=== PATIENT | male | born 2000 | race Caucasian/White ===

== ENCOUNTER 2019-11-23 23:02 | Emergency (ER) | payer OTHER, SELFPAY ==
[2019-11-23 23:05] VITALS: BP 135/78; PULSE 91; RESP 18; TEMP 36.3; O2SAT 98
--- NOTE | 2019-11-24 01:18 | ED.WOUNDLAC ---
HPI - Wound/Laceration General Chief Complaint: Wound/Laceration Stated Complaint: lac right leg Time Seen by Provider: 11/24/19 01:15 Source: patient Mode of arrival: ambulatory Limitations: no limitations History of Present Illness HPI narrative: This patient is a 19 year old male who presents for evaluation right knee laceration. Patient states he hit his right knee with a door and he suffered an laceration. He states prior to arrival he was unable to control bleeding so he came to ER. His bleeding has stopped. He has minimal pain currently. He denies any difficulty ambulation. His last tetanus was 2 years ago. Related Data Home Medications Medication Instructions Recorded Confirmed No Home Medications 11/23/19 11/23/19 Allergies Allergy/AdvReac Type Severity Reaction Status Date / Time artichoke Allergy Unknown Unknown Verified 11/23/19 23:09 Review of Systems Review of Systems: All systems reviewed & are unremarkable except as noted in HPI and below PMFSH Past Medical History Medical History (Updated 11/24/19 @ 01:23 by Tejal Moscoso MD) Patient denies medical problems Social History Social History Gender identity (if verbalized by the patient): Male Exam Const: General: no acute distress and alert Orientation/consciousness: patient oriented x3 HENMT: Head: normocephalic and atraumatic Resp: Effort & Inspection: normal respiratory effort Neuro: General: patient oriented x3 and moves all extremities Extrem: Other: Right knee with 1 cm superficial linear laceration, no bleeding, mild tenderness at site of laceration but other cueto no swelling involving joint o malleolus Course Vital Signs Vital signs: Vital Signs Temperature 97.4 F L 11/23/19 23:05 Pulse Rate 91 11/23/19 23:05 Respiratory Rate 18 11/23/19 23:05 Blood Pressure 135/78 11/23/19 23:05 Pulse Oximetry 98 11/23/19 23:05 Temperature 97.4 F L 11/23/19 23:05 Pulse Rate 58 L 11/24/19 01:30 Respiratory Rate 17 11/24/19 01:30 Blood Pressure 125/70 11/24/19 01:30 Pulse Oximetry 97 11/24/19 01:30 Discharge Plan Discharge Clinical Impression: Laceration of knee, right Qualifiers: Encounter type: initial encounter Qualified Code(s): S81.011A - Laceration without foreign body, right knee, initial encounter Patient Disposition: Home, Self-Care Condition: Stable Instructions: Antibiotic Form, Laceration (ED), Acute Wounds (ED) Additional Instructions: Keep your wound clean and dry. Watch for signs of infection . Take tylenol or ibuprofen for your pain if needed. Prescriptions: No Action No Home Medications RF: 0 Follow-up/Referrals: Sebastian Gonzalez Jr., MD [Physician] - PHYSICIAN,WINDOWS [employer]BI[employer] DEVELOPER [Primary Care Provider] - Discharge Date/Time: 11/24/19 01:30
[2019-11-24 01:30] VITALS: BP 125/70; PULSE 58; RESP 17; O2SAT 97
== END 2019-11-24 01:30 | disposition home or self-care (01) ==
PROVIDERS: Emergency Provider General Practice
DX: S81.011A Laceration without foreign body, right knee, initial encounter (principal); W22.8XXA Striking against or struck by other objects, initial encounter
CPT/HCPCS: 99282